=== PATIENT | male | born 1995 | race Caucasian/White ===

== ENCOUNTER 2020-08-19 21:12 | Emergency (ER) | payer OTHER ==
[2020-08-19] MEDS ORDERED: ERYTHROMYCIN O3.5 GM OS (22:39)
== END 2020-08-19 23:00 | disposition home or self-care (01) ==
LOC: ER1 21:12
DX: S05.02XA Injury of conjunctiva and corneal abrasion without foreign body, left eye, initial encounter (principal); Z23 Encounter for immunization; W26.8XXA Contact with other sharp object(s), not elsewhere classified, initial encounter
CPT/HCPCS: 90715; 99283